=== PATIENT | female | born 1990 | race Caucasian/White ===

== ENCOUNTER 2021-12-27 19:03 | Emergency (ER) | payer MEDICAID, SELFPAY ==
[2021-12-27 19:09] VITALS: BP 109/82; PULSE 96; RESP 16; TEMP 36.8; O2SAT 98; BMI 35.5
--- NOTE | 2021-12-27 19:41 | ED_ITS ---
HPI - General Adult General Time Seen by Provider: 19:42 Date Seen: 12/27/21 Chief complaint: Unspecified Complaint, Adult Stated complaint: Swelling in Throat Time Seen by Provider: 12/27/21 19:39 Source: patient and RN notes reviewed Mode of arrival: ambulatory Limitations: no limitations History of Present Illness HPI narrative: Patient is a 31-year-old female coming in with her throat bothering her since last evening. She states she did not sleep all night thinking that she might . She notes she is getting over a cold but is not having necessarily signi ficant postnasal drainage at this time. She has no current cough or cold symptoms, no fevers. She states it feels like it is swollen and points to her anterior neck and is in the throat in that area. States it makes her feel like it is gagging her and she feels nauseated from it. She has been able to eat today. She is drinking her T while I am in with her. She has ate chicken and mashed potatoes without difficulty. She had breakfast and lunch as well. She understands that it may be more mental because she does suffer from severe anxiety. She has been out of her alprazolam for about 1 and half weeks but is scheduled to get it on the . She is just worried that she is going to overnight. She states when she leaves and she is not around doctors she is going to feel like she might . She does feel chest heaviness she does feel anxious and lightheaded. These are her typical anxiety symptoms for her. The feeling that her throat is swollen is not. She does have reflux and takes omeprazole and famotidine daily. She is able to swallow without difficulty and there is no pain. Her past medical history that she relays to me today is severe anxiety, tubal ligation, gastric sleeve and tonsillectomy about 6 years ago. Did review her [place] prescribing website and she is getting alprazolam Vyvanse from 1 provider but is getting these routinely. I do note there are lot of prescriptions for alprazolam. Related Data Home Medications Medication Instructions Recorded Confirmed alprazolam 1 mg tablet mg 12/27/21 desvenlafaxine succinate 100 mg mg PO 12/27/21 tablet,extended release 24 hr famotidine 20 mg tablet mg 12/27/21 omeprazole 20 mg capsule,delayed mg 12/27/21 release Allergies Allergy/AdvReac Type Severity Reaction Status Date / Time propofol Allergy went to icu Verified 12/27/21 19:14 'local anesthesia' AdvReac throws up Uncoded 12/27/21 19:14 when asleep Review of Systems Status of ROS: Reports: 10 or more systems reviewed and unremarkable except as noted in History and below PFSH PFSH Social History Smoking Status: Current some day smoker How often do you have a drink containing alcohol: never AUDIT-C Alcohol total score: 0 Non-prescribed substance use: denies use Exam Const: Vital Signs, click to edit/add: Vital Signs - 24 hr 12/27/21 19:09 Temperature 98.2 F Pulse Rate [Right Pulse Oximeter] 96 Respiratory Rate 16 Blood Pressure [Le ft Upper Arm] 109/82 Pulse Oximetry 98 Oxygen Delivery Me thod Room Air Documenting provider has reviewed patient's vital signs: yes Common normals: no apparent distress, average body habitus, oriented x3, no limitations, healthy appearing, alert and well nourished General appearance: cooperative, comfortable and well kempt Other: She is able to speak in complete sentences, no hoarseness. Does laugh with me at times. Overall is very pleasant but do since her significant anxiety. She is quite sincere about worrying about dying and worried her throat may close on her. HENMT: Common normals: normocephalic, head/scalp atraumatic, hearing grossly normal bilaterally, external ears normal, EAC's normal, TM's normal bilaterally, external nose normal, nasal mucous membranes and turbinates normal, moist oral mucous membranes, oropharynx normal (Status post tonsillectomy and can see some residual scars), dentition normal and gingiva normal Head and scalp: normocephalic and atraumatic Nose: external nose normal and nasal mucous membranes and turbinates normal External ear: external ears normal External auditory canal: EAC's normal Tympanic membrane: TM's normal bilaterally Throat: posterior oropharynx normal Eye: Common normals: PERRL, EOMs intact bilaterally, conjunctivae normal and no scleral icterus Conjunctiva: conjunctiva(e) normal Pupil: PERRL Neck & C-Spine: Common normals: full ROM, no lymphadenopathy, supple, no meningeal signs, no JVD and thyroid normal Thyroid: thyroid normal Resp: Common normals: normal respiratory effort, no retractions, no use of accessory muscles and clear to auscultation bilaterally Auscultation: clear to auscultation bilaterally Cardio: Common normals: no JVD, regular rate, regular rhythm, S1 normal heart sound, S2 normal heart sound, no gallops, no clicks and no murmurs Rate: regular rate Rhythm: regular rhythm Heart sounds: S1 normal and S2 normal GI: Common normals: Normal to inspection, nondistended, normoactive bowel sounds present, soft to palpation, non-tender, no hepatosplenomegaly and no masses Palpation: soft and no hepatosplenomegaly Extremity: Common normals: normal to inspection and full ROM Neuro: Common normals: oriented x3, CN's II-XII intact bilaterally, moves all extremities, no focal motor deficits, no sensory deficits noted and gait normal Sensorium/orientation: alert Meningeal signs: no meningeal signs Speech: speech normal Psych: Appearance: well kempt Course Course Hospital Course: Patient has severe anxiety and is quite worried that her throat may closed and she may not wake up. Reviewed with her that it is likely she has globus sensation. However with that said I went over options with her. She really would like to proceed with soft tissue neck CT. I do not feel that an going to be able to dissuade her or alleviate her anxiety without doing some testing. I do not have the ability to have her see ENT tonight. Best I can do is do the soft tissue neck CT and rule out any oral/airways swelling. We will check some basic labs on her as well. She is quite pleasant and reasonable at this time. With a recent cold she may have had some postnasal drainage, she could possibly have some ongoing reflux symptoms, all which could contribute to globus sensation. Have reviewed with her if her evaluation here is normal, will likely recommend outpatient ENT follow-up. Vital Signs Vital signs: Initial Vital Signs Temperature 98.2 F 12/27/21 19:09 Temperature Source Temporal Artery Scan 12/27/21 19:09 Pulse Rate 96 12/27/21 19:09 Respiratory Rate 16 12/27/21 19:09 Blood Pressure 109/82 12/27/21 19:09 Blood Pressure Mean 91 12/27/21 19:09 Blood Pressure Position Sitting 12/27/21 19:09 Pulse Oximetry 98 12/27/21 19:09 Oxygen Delivery Method 12/27/21 19:09 Vital Signs Temperature 98.2 F 12/27/21 19:09 Pulse Rate 96 12/27/21 19:09 Respiratory Rate 16 12/27/21 19:09 Blood Pressure 109/82 12/27/21 19:09 Pulse Oximetry 98 12/27/21 19:09 Oxygen Delivery Method 12/27/21 19:09 Temperature 98.2 F 12/27/21 19:09 Pulse Rate 96 12/27/21 19:09 Respiratory Rate 16 12/27/21 19:09 Blood Pressure 109/82 12/27/21 19:09 Pulse Oximetry 98 12/27/21 19:09 Oxygen Delivery Method 12/27/21 19:09 Medical Decision Making Lab Data Lab results reviewed: Yes I reviewed the patient's lab results Labs: Lab Results 12/27/21 12/27/21 Range/Units 20:26 20:26 WBC 14.03 H (4.50-11.00) K/uL RBC 4.31 (4.00-5.20) m/uL Hgb 12.5 (12.0-16.0) gm/dL Hct 37.6 (33.0-51.0) % MCV 87 (80-100) fL MCH 29 (26-34) pg MCHC 33 (32-36) gm/dL RDW Coeff of Ana Cristina 13.0 (11.5-15.5) % Plt Count 409 (140-440) K/uL Neut % (Auto) 62.1 (42.0-72.0) % Lymph % (Auto) 28.9 (20-44) % [place] % (Auto) 6.3 (0.0-11.0) % Eos % (Auto) 1.5 (0.0-7.0) % Baso % (Auto) 0.6 (0.0-3.0) % Neut # (Auto) 8.70 H (1.7-7.0) K/uL Lymph # (Auto) 4.10 H (0.90-2.90) K/uL [place] # (Auto) 0.90 (0.00-0.90) K/UL Eos # (Auto) 0.20 (0.00-0.50) K/uL Baso # (Auto) 0.10 (0.00-0.30) K/uL Abs Immat Gran (auto) 0.10 (0.00-0.30) K/uL Imm/Tot Granulo (auto) 0.6 % Sodium 137 (135-149) mmol/L Potassium 3.8 (3.6-5.1) mmol/L Chloride 104 (96-114) mmol/L Carbon Dioxide 23 (20-32) mmol/L BUN 11 (5-24) mg/dL Creatinine 0.7 (0.5-1.5) mg/dL Estimated Creat Clear 86.26 Estimated GFR 117 ml/min Glucose 102 (60-115) mg/dL Calcium 9.3 (8.4-10.6) mg/dL Total Bilirubin 0.4 (0.1-1.5) mg/dL AST 16 (12-35) U/L ALT 15 (4-35) U/L Alkaline Phosphatase 95 (40-150) U/L Total Protein 7.5 (6.0-8.3) g/dL Albumin 4.5 (3.3-5.0) g/dL Imaging Data CT- Other: Attestation: I have reviewed the pertinent imaging results. Radiologist's impression: Patient: LISA CABRERA Facility:?[facility] Patient ID:?[id number] Site Patient ID:?[id number]. Site :?[id number] Study:?CT ST Neck -12/27/2021 8:42:40 PM Ordering Physician:?Keyona Peters Final Report: INDICATION: Throat swelling. TECHNIQUE: CT soft tissue of the neck was acquired with 92 cc of Isovue 370 IV contrast. COMPARISON: None. FINDINGS: Skull base: Unremarkable. Pharynx/Larynx/Trachea: Epiglottis is normal. Airway is patent. Adjacent soft tissues are normal. No retropharyngeal collection. Salivary glands: Unremarkable. Thyroid gland: Unremarkable. No significant nodules. Lymph nodes: No lymphadenopathy. Vessels: Unremarkable for age. Bones: Unremarkable for age. Misc: Mild mucosal thickening of the left maxillary sinus. Lung apices: Unremarkable. IMPRESSION: Unremarkable CT of the neck. Normal airway without evidence of swelling. No retropharyngeal collection. Please note that all CT scans at this facility use dose modulation, iterative reconstruction, and/or weight-based dosing when appropriate to reduce radiation dose to as low as reasonably achievable. Dictated by Kwame Hernandez MD @ 12/27/2021 9:30:19 PM (Electronic Signature) Critical Care Time Critical Care Time Critical Care Time: No Discharge Plan Discharge Clinical Impression: Globus sensation Patient Disposition: Home, Self-Care Condition: Stable Additional Instructions: Schedule follow-up with your primary care doctor. If you have ongoing symptoms, they can refer you to an ENT specialist. If you are noticing postnasal drainage, can try a some Flonase or decongestant of choice. Activity Level: Activity as Tolerated Discharge Diet: Regular Prescriptions: No Action alprazolam 1 mg tablet Label Comments: TAKE 1 TABLET BY MOUTH 1-2 TIMES DAILY NEEDED FOR SEVERE ANXIETY FOR 30 DAYS. famotidine 20 mg tablet Label Comments: TAKE 1 TABLET BY MOUTH TWICE A DAY omeprazole 20 mg capsule,delayed release(DR/EC) Label Comments: TAKE 1 CAPSULE (20 MG) BY MOUTH DAILY (HEAL STOMACH) desvenlafaxine succinate 100 mg tablet extended release 24 hr PO Label Comments: TAKE 1 TABLET BY MOUTH EVERY DAY Stand Alone Forms: My[employer] Info Instructions
--- NOTE | 2021-12-27 19:57 | CRLHL7_ITS ---
For Patients: As a result of the Century Cures Act, medical imaging exams and procedure reports are released immediately into your electronic medical record. You may view this report before your referring provider. If you have questions, please contact your health care provider. INDICATION: Throat swelling. TECHNIQUE: CT soft tissue of the neck was acquired with 92 cc of Isovue 370 IV contrast. COMPARISON: None. FINDINGS: Skull base: Unremarkable. Pharynx/Larynx/Trachea: Epiglottis is normal. Airway is patent. Adjacent soft tissues are normal. No retropharyngeal collection. Salivary glands: Unremarkable. Thyroid gland: Unremarkable. No significant nodules. Lymph nodes: No lymphadenopathy. Vessels: Unremarkable for age. Bones: Unremarkable for age. Misc: Mild mucosal thickening of the left maxillary sinus. Lung apices: Unremarkable. IMPRESSION: Unremarkable CT of the neck. Normal airway without evidence of swelling. No retropharyngeal collection. Please note that all CT scans at this facility use dose modulation, iterative reconstruction, and/or weight-based dosing when appropriate to reduce radiation dose to as low as reasonably achievable. Dictated by Kwame Hernandez MD @ 12/27/2021 9:30:19 PM (Electronically Signed)
[2021-12-27 20:38] LABS: Eosinophils Percent Auto 1.5 % (0.0-7.0); Hematocrit 37.6 % (33.0-51.0); Hemoglobin* 12.5 gm/dL (12.0-16.0); Lymphocytes Percent Auto 28.9 % (20-44); Mean Corpuscular HGB Conc 33 gm/dL (32-36); Mean Corpuscular Hemoglobin 29 pg (26-34); Mean Corpuscular Volume 87 fL (80-100); Monocytes Percent Auto 6.3 % (0.0-11.0); Neutrophils Percent Auto 62.1 % (42.0-72.0); Platelet Count* 409 K/uL (140-440); Red Blood Count 4.31 m/uL (4.00-5.20)
[2021-12-27 20:39] LABS: Basophils Percent Auto 0.6 % (0.0-3.0); Immature Granulocytes Pct Auto 0.6 %; Slide Review Reflex No
[2021-12-27 20:44] LABS: Albumin* 4.5 g/dL (3.3-5.0); Chloride* 104 mmol/L (96-114); Potassium* 3.8 mmol/L (3.6-5.1); Sodium* 137 mmol/L (135-149)
[2021-12-27 20:46] LABS: Bilirubin Total* 0.4 mg/dL (0.1-1.5); Carbon Dioxide* 23 mmol/L (20-32); Creatinine* 0.7 mg/dL (0.5-1.5); Est. Creatinine Clearance* 86.26; Estimated Glomerular Filt Rate 117 ml/min
[2021-12-27 20:47] LABS: Alanine Aminotransferase* 15 U/L (4-35); Alkaline Phosphatase* 95 U/L (40-150); Aspartate Amino Transferase* 16 U/L (12-35); Blood Urea Nitrogen* 11 mg/dL (5-24); Glucose* 102 mg/dL (60-115); Total Protein* 7.5 g/dL (6.0-8.3)
[2021-12-27 21:02] LABS: Calcium* 9.3 mg/dL (8.4-10.6)
[2021-12-27 23:08] LABS: White Blood Count* 14.03 K/uL (4.50-11.00)
== END 2021-12-27 22:25 | disposition home or self-care (01) ==
PROVIDERS: Emergency Provider Family Medicine
DX: F45.8 Other somatoform disorders (principal)
CPT/HCPCS: 36415; 70491; 80053; 85025; 99284; Q9967

== ENCOUNTER 2022-01-27 18:11 | Emergency (ER) | payer MEDICAID, SELFPAY ==
[2022-01-27 18:17] VITALS: BP 88/52; PULSE 124; RESP 24; TEMP 37.2; O2SAT 97; BMI 36.5
--- NOTE | 2022-01-27 18:24 | ED.GENADULT ---
HPI - General Adult General Time Seen by Provider: 18:25 Date Seen: 01/27/22 Chief complaint: Syncope/Fainted Stated complaint: Abdominal Pain Vomiting Time Seen by Provider: 01/27/22 18:15 Source: patient Mode of arrival: ambulatory Limitations: no limitations History of Present Illness HPI narrative: Susie is a 31 year old female past medical history of anxiety and depression, panic attacks, pancreatitis, agoraphobia presents emergency department via EMS with vomiting, syncope and abdominal pain. Patient states that since yesterday evening she has had a sense of heaviness when she stands like she is going to pass out, patient states she got up around 6:00 a.m. this morning had a fainting spell. Both of her children have a ongoing cough, tested negative for COVID, she is not vaccinated against COVID, she complains mostly of body aches and headache, she denies any sore throat, he had episodes of coughing to she vomited, she has a lot of phlegm, she has episodes of shortness of breath during that time. She has increased anxiety she took 1 of her anxiety meds prior to arrival. EMS gave her 4 mg of IV Zofran. Patient has not been eating or drinking much since yesterday, she had some green tea and some crackers. She denies any chest pain or abdominal pain at this time, was concerned that she may have COVID. Headache is frontal, tension-like, no visual disturbance. Prior to yesterday she was doing well. No other concerns at this time. Related Data Home Medications Medication Instructions Recorded Confirmed alprazolam 1 mg tablet mg 12/27/21 desvenlafaxine succinate 100 mg mg PO 12/27/21 tablet,extended release 24 hr famotidine 20 mg tablet mg 12/27/21 omeprazole 20 mg capsule,delayed mg 12/27/21 release Allergies Allergy/AdvReac Type Severity Reaction Status Date / Time propofol Allergy went to icu Verified 12/27/21 19:14 'local anesthesia' AdvReac throws up Uncoded 12/27/21 19:14 when asleep Review of Systems Status of ROS: Reports: 10 or more systems reviewed and unremarkable except as noted in History and below PFSH PFSH Social History Smoking Status: Current some day smoker How often do you have a drink containing alcohol: never AUDIT-C Alcohol total score: 0 Non-prescribed substance use: denies use Exam Narrative: Exam Narrative: General: No obvious distress, lying comfortably, non anxious in appearance HEENT: Bilateral clear middle ear effusions, pupils equal round reactive to light, extraocular muscles intact Neck is supple, full range of motion Lungs: Clear to auscultation bilaterally Heart: Sinus tachycardia Abdomen: Bowel sounds present, nontender to palpation, no rebound or guarding Muscle skeletal: +5 strength upper and lower extremities Neuro: Alert awake and oriented x3 Const: Vital Signs, click to edit/add: Vital Signs - 24 hr 01/27/22 18:17 01/27/22 19:08 Temperature 98.9 F Pulse Rate [Pulse Oximeter] 124 H 116 H Respiratory Rate 24 20 Blood Pressure [Le ft Upper Arm] 88/52 L 121/87 Pulse Oximetry 97 96 Oxygen Delivery Me thod Room Air Room Air Course Course Hospital Course: 6:45 PM: AIDET performed. Vitals show tachycardia, hypotension, workup will include IV peripheral, orthostatic blood pressure, will obtain COVID/influenza/RSV swabs, CBC, CMP and lipase, suspect viral etiology such as influenza or COVID, 0.9 normal saline bolus, 30 mg IV Toradol. Differential diagnosis include but not limited to strep throat illness, bronchitis, COVID, influenza, RSV, pancreatitis, gastritis, bronchiolitis, pneumonia and gastroesophageal reflux as well as all etiologies Reevaluation(s) Reevaluation #1: Patient was updated on her lab results, patient was positive for influenza A, labs were otherwise reassuring, she got the above care and her vitals improved, blood pressure 121/87, patient sinus tachycardia improved, she was tolerating orals in emergency department, labs were otherwise stable, written instructions given, she will follow up with her primary care provider over the next 7-10 days, return precautions given. Time: 20:11 Vital Signs Vital signs: Initial Vital Signs Temperature 98.9 F 01/27/22 18:17 Temperature Source Temporal Artery Scan 01/27/22 18:17 Pulse Rate 124 H 01/27/22 18:17 Pulse Rhythm 01/27/22 18:17 Respiratory Rate 24 01/27/22 18:17 Blood Pressure 88/52 L 01/27/22 18:17 Blood Pressure Mean 64 01/27/22 18:17 Blood Pressure Position Right Lateral 01/27/22 18:17 Pulse Oximetry 97 01/27/22 18:17 Oxygen Delivery Method 01/27/22 18:17 Vital Signs Temperature 98.9 F 01/27/22 18:17 Pulse Rate 124 H 01/27/22 18:17 Respiratory Rate 24 01/27/22 18:17 Blood Pressure 88/52 L 01/27/22 18:17 Pulse Oximetry 97 01/27/22 18:17 Oxygen Delivery Method 01/27/22 18:17 Temperature 98.9 F 01/27/22 18:17 Pulse Rate 116 H 01/27/22 19:08 Respiratory Rate 20 01/27/22 19:08 Blood Pressure 121/87 01/27/22 19:08 Pulse Oximetry 96 01/27/22 19:08 Oxygen Delivery Method 01/27/22 19:08 Medical Decision Making Lab Data Labs: Lab Results 01/27/22 01/27/22 01/27/22 Range/Units 19:04 19:04 19:04 WBC 6.04 (4.50-11.00) K/uL RBC 4.16 (4.00-5.20) m/uL Hgb 11.8 L (12.0-16.0) gm/dL Hct 36.2 (33.0-51.0) % MCV 87 (80-100) fL MCH 28 (26-34) pg MCHC 33 (32-36) gm/dL RDW Coeff of Ana Cristina 13.0 (11.5-15.5) % Plt Count 278 (140-440) K/uL Neut % (Auto) 59.6 (42.0-72.0) % Lymph % (Auto) 21.9 (20-44) % [place] % (Auto) 15.1 H (0.0-11.0) % Eos % (Auto) 1.7 (0.0-7.0) % Baso % (Auto) 0.5 (0.0-3.0) % Neut # (Auto) 3.61 (1.7-7.0) K/uL Lymph # (Auto) 1.32 (0.90-2.90) K/uL [place] # (Auto) 0.90 (0.00-0.90) K/UL Eos # (Auto) 0.10 (0.00-0.50) K/uL Baso # (Auto) 0.03 (0.00-0.30) K/uL Abs Immat Gran (auto) 0.07 (0.00-0.30) K/uL Imm/Tot Granulo (auto) 1.2 % Sodium 133 L (135-149) mmol/L Potassium 3.4 L (3.6-5.1) mmol/L Chloride 103 (96-114) mmol/L Carbon Dioxide 24 (20-32) mmol/L BUN 7 (5-24) mg/dL Creatinine 0.8 (0.5-1.5) mg/dL Estimated Creat Clear 75.48 Estimated GFR 100 ml/min Glucose 87 (60-115) mg/dL Calcium 8.2 L (8.4-10.6) mg/dL Total Bilirubin 0.4 (0.1-1.5) mg/dL AST 23 (12-35) U/L ALT 25 (4-35) U/L Alkaline Phosphatase 76 (40-150) U/L Total Protein 6.7 (6.0-8.3) g/dL Albumin 3.9 (3.3-5.0) g/dL Lipase 254 (23-300) U/L SARS-CoV-2 (PCR) Negative SARS-CoV-2 (Negative) Influenza Type A (PCR) POSITIVE PCR FLU A A (Negative) Influenza Type B (PCR) Negative PCR FLU B (Negative) RSV (PCR) Negative PCR RSV (Negative) Discharge Plan Discharge Clinical Impression: Influenza A Patient Disposition: Home, Self-Care Condition: Improved Instructions: Influenza (ED) Additional Instructions: Continue with Motrin and/or Tylenol every 4-6 hours as needed for pain, to follow-up with primary care provider over the next 7-10 days as needed, return if worsening symptoms. Activity Level: Activity as Tolerated Prescriptions: No Action alprazolam 1 mg tablet Label Comments: TAKE 1 TABLET BY MOUTH 1-2 TIMES DAILY NEEDED FOR SEVERE ANXIETY FOR 30 DAYS. famotidine 20 mg tablet Label Comments: TAKE 1 TABLET BY MOUTH TWICE A DAY omeprazole 20 mg capsule,delayed release(DR/EC) Label Comments: TAKE 1 CAPSULE (20 MG) BY MOUTH DAILY (HEAL STOMACH) desvenlafaxine succinate 100 mg tablet extended release 24 hr PO Label Comments: TAKE 1 TABLET BY MOUTH EVERY DAY Follow Up/Referrals: Provider,Not a Local [Primary Care Provider] - Stand Alone Forms: [employer] Info Instructions
[2022-01-27] MEDS: KETOROLAC 30 MG/ML inj IVP (19:05)
[2022-01-27] MEDS: 0.9 % SODIUM CHLORIDE 1000 ml 1,000 ML IV (19:05)
[2022-01-27 19:08] VITALS: BP 121/87; PULSE 116; RESP 20; O2SAT 96
[2022-01-27 19:14] LABS: Basophils Absolute Auto 0.03 K/uL (0.00-0.30); Basophils Percent Auto 0.5 % (0.0-3.0); Eosinophils Percent Auto 1.7 % (0.0-7.0); Hematocrit 36.2 % (33.0-51.0); Hemoglobin* 11.8 gm/dL (12.0-16.0); Immature Granulocytes Abs Auto 0.07 K/uL (0.00-0.30); Immature Granulocytes Pct Auto 1.2 %; Lymphocytes Absolute Auto 1.32 K/uL (0.90-2.90); Lymphocytes Percent Auto 21.9 % (20-44); Mean Corpuscular HGB Conc 33 gm/dL (32-36); Mean Corpuscular Hemoglobin 28 pg (26-34); Mean Corpuscular Volume 87 fL (80-100); Monocytes Percent Auto 15.1 % (0.0-11.0); Neutrophils Absolute Auto 3.61 K/uL (1.7-7.0); Neutrophils Percent Auto 59.6 % (42.0-72.0); Platelet Count* 278 K/uL (140-440); Red Blood Count 4.16 m/uL (4.00-5.20); White Blood Count* 6.04 K/uL (4.50-11.00)
[2022-01-27 19:16] LABS: Slide Review Reflex No
[2022-01-27 19:30] VITALS: BP 108/75; RESP 16; O2SAT 98
[2022-01-27 19:38] LABS: Albumin* 3.9 g/dL (3.3-5.0); Chloride* 103 mmol/L (96-114); Potassium* 3.4 mmol/L (3.6-5.1); Sodium* 133 mmol/L (135-149)
[2022-01-27 19:40] LABS: Creatinine* 0.8 mg/dL (0.5-1.5); Est. Creatinine Clearance* 75.48; Estimated Glomerular Filt Rate 100 ml/min
[2022-01-27 19:41] LABS: Alkaline Phosphatase* 76 U/L (40-150); Aspartate Amino Transferase* 23 U/L (12-35); Bilirubin Total* 0.4 mg/dL (0.1-1.5); Blood Urea Nitrogen* 7 mg/dL (5-24); Carbon Dioxide* 24 mmol/L (20-32); Glucose* 87 mg/dL (60-115); Lipase* 254 U/L (23-300); Total Protein* 6.7 g/dL (6.0-8.3)
[2022-01-27 19:42] LABS: Alanine Aminotransferase* 25 U/L (4-35); Calcium* 8.2 mg/dL (8.4-10.6)
[2022-01-27 19:50] LABS: PCR FLU A POSITIVE PCR FLU A (Negative); PCR FLU B Negative PCR FLU B (Negative); PCR RSV Negative PCR RSV (Negative)
[2022-01-27 19:58] LABS: SARS PCR* Negative SARS-CoV-2 (Negative)
== END 2022-01-27 21:10 | disposition home or self-care (01) ==
PROVIDERS: Emergency Provider Student in an Organized Health Care Education/Training Program
DX: J10.1 Influenza due to other identified influenza virus with other respiratory manifestations (principal)
CPT/HCPCS: 36415; 80053; 83690; 85025; 87502; 87634; 87635; 96374; 99283; 99284; J1885; J7030